=== PATIENT | male | born 1965 | race Two or more races ===

== ENCOUNTER 2023-12-12 03:20 | Inpatient (IN) | payer OTHER ==
[~2023-12-12] VITALS: Ht 177.8 cm; Wt 102.9 kg
--- NOTE | 2023-12-12 03:32 | ED.PDOC ---
History of Present Illness HPI Comments A 58 year old male presents to the ED with a chief complaint of RT sided weakness onset yesterday. Patient was sent from [place] to rule out CVA. 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 Patient is also experiencing back pain that radiates to his head. No other symptoms or modifying factors present at this time. Time Seen by MD: 03:25 Reviewed Notes: Medications, Allergies Allergies: Coded Allergies: Acetaminophen (Verified Allergy, Unknown, 12/12/23) Oxycodone (Verified Allergy, Unknown, 12/12/23) Information Source: Patient Mode of Arrival: Ambulatory Severity: Moderate Timing: Hours Duration: Since onset Prehospital treatment: None Family History Family History: Reviewed,noncontributory to illness, No family hx of Cancer, No family hx of DM, No family hx of Heart rashard, No family hx of HTN, No family hx ofKidney rashard, No family hx of Liver rashard, No family hx of Lung rashard, No family hx of Stroke Social History Smoker: Non-Smoker Alcohol: Denies ETOH Use Drugs: Denies Drug Use Lives In: Home Constitutional: denies: chills, diaphoresis, fatigue, fever, malaise, sweats, weakness, others EENTM: denies: blurred vision, double vision, ear bleeding, ear discharge, ear drainage, ear pain, ear ringing, eye pain, eye redness, hearing loss, mouth pain, mouth swelling, nasal discharge, nose bleeding, nose congestion, nose pain, photophobia, tearing, throat pain, throat swelling, voice changes, others Respiratory: denies: cough, hemoptysis, orthopnea, SOB at rest, shortness of breath, SOB with excertion, stridor, wheezing, others Cardiovascular: denies: chest pain, dizzy spells, diaphoresis, Dyspnea on exertion, edema, irregular heart beat, left arm pain, lightheadedness, palpitations, PND, syncope, others Gastrointestinal: denies: abdomen distended, abdominal pain, blood streaked bowels, constipated, diarrhea, dysphagia, difficulty swallowing, hematemesis, melena, nausea, poor appetite, poor fluid intake, rectal bleeding, rectal pain, vomiting, others Genitourinary: denies: burning, dysuria, flank pain, frequency, hematuria, incontinence, penile discharge, penile sore, pain, testicle pain, testicle swelling, urgency, others Neurological: reports: right sided numbness, right sided weakness, tingling; denies: dizziness, fainting, headache, left sided numbness, left sided weakness, numbness, paresthesia, pre-existing deficit, seizure, speech problems, tremors, weakness, others Musculoskeletal: denies: back pain, gout, joint pain, joint swelling, muscle pain, muscle stiffness, neck pain, others Integumetry: denies: bruises, change in color, change in hair/nails, dryness, laceration, lesions, lumps, rash, wounds, others Allergic/Immunocompromised: denies: Difficulty Healing, Frequent Infections, Hives, Itching, others Hematologic/Lymphatic: denies: anemia, blood clots, easy bleeding, easy bruising, swollen glands, others Endocrine: denies: excessive hunger, excessive sweating, excessive thirst, excessive urination, flushing, intolerance to cold, intolerance to heat, unexplained weight gain, unexplained weight loss, others Psychiatric: denies: anxiety, bipolar disorder, depression, hopeless, panic disorder, schizophrenia, sleepless, suicidal, others All Other Systems: Reviewed and Negative Physical Exam General Appearance: No Apparent Distress, Normal HEENT: Normal ENT Inspection, Pharynx Normal, TMs Normal Neck: Full Range of Motion, Non-Tender, Normal, Normal Inspection Respiratory: Chest Non-Tender, Lungs Clear, No Accessory Muscle Use, No Respiratory Distress, Normal Breath Sounds Cardiovascular: No Edema, No JVD, No Murmur, No Gallop, Normal Peripheral Pulses, Regular Rate/Rhythm Breast Exam: Deferred Gastrointestinal: No Organomegaly, Non Tender, No Pulsatile Mass, Normal Bowel Sounds, Soft Genitalia: Deferred Pelvic: Deferred Rectal: Deferred Extremities: No calf tenderness, Normal capillary refill, Normal inspection, Normal range of motion, Non-tender, No pedal edema Musculoskeletal : Apperance: Normal Neurologic: Alert, data analysis manager II-XII nml as Tested, No Motor Deficits, Normal Affect, Normal Mood, No Sensory Deficits Cerebellar Function: Normal Reflexes: Normal Skin: Dry, Normal Color, Warm Lymphatic: No Adenopathy Was a procedure done? Was a procedure done?: No Differential Dx Considerations may include: CVA, TIA, electrolyte abnormality X-Ray, Labs, Meds, VS Vital Signs Date Time Temp Pulse Resp B/P (MAP) Pulse Ox O2 Delivery O2 Flow Rate FiO2 12/12/23 04:06 Room Air* 0 21 12/12/23 03:55 66 15 154/81 (105) 95 12/12/23 03:36 98.3 75 16 182/101 (128) 100 Lab Test 12/12/23 03:30 Range/Units White Blood Count 6.6 4.4-10.8 10^3/uL Red Blood Count 4.67 4.5-5.90 10^6/uL Hemoglobin 13.4 L 13.5-17.5 g/dL Hematocrit 40.5 L 41.0-53.0 % Mean Corpuscular Volume 86.7 80.0-100.0 fL Mean Corpuscular Hemoglobin 28.7 28.0-32.0 pg Mean Corpuscular Hemoglobin Concent 33.1 32.0-36.0 g/dL Red Cell Distribution Width 15.0 H 11.8-14.3 % Platelet Count 172 140-450 10^3/uL Mean Platelet Volume 9.4 6.9-10.8 fL Neutrophils (%) (Auto) 61.9 37.0-80.0 % Lymphocytes (%) (Auto) 30.3 10.0-50.0 % Monocytes (%) (Auto) 6.3 0.0-12.0 % Eosinophils (%) (Auto) 1.1 0.0-7.0 % Basophils (%) (Auto) 0.4 0.0-2.0 % Neutrophils # (Auto) 4.1 1.6-8.6 10 ^3/uL Lymphocytes # (Auto) 2.0 0.4-5.4 10 ^3/uL Monocytes # (Auto) 0.4 0-1.3 10 ^3/uL Eosinophils # (Auto) 0.1 0-0.8 10 ^3/uL Basophils # (Auto) 0 0-0.2 10 ^3/uL Nucleated Red Blood Cells 0.0 % Sodium Level 136 136-145 mmol/L Potassium Level 3.4 L 3.5-5.1 mmol/L Chloride Level 102 98-107 mmol/L Carbon Dioxide Level 30 20-31 mmol/L Anion Gap 4 L 5-15 Blood Urea Nitrogen 13 9-23 mg/dL Creatinine 1.27 0.700-1.30 mg/dL Glomerular Filtration Rate Calc 65 >90 mL/min BUN/Creatinine Ratio 10.2 10.0-20.0 Serum Glucose 178 H 74-106 mg/dL Calcium Level 9.6 8.7-10.4 mg/dL Time of 1ST Reevaluation: 03:55 Reevaluation 1ST: Unchanged Patient Education/Counseling: Diagnosis, Treatment, Prognosis Family Education/Counseling: No Family Present Departure 1 Departure Time of Disposition: 04:14 (Patient was transferred over from [facility] for concern for TIA. We will admit patient for MRI and Neurology consult) Impression: Primary Impression: Arm paresthesia, right Additional Impression: Right arm weakness Disposition: 09 ADMITTED INPATIENT Admit to: Med Surg Condition: Serious Critical Care Note Critical Care Time?: No Stability Stability form required: No I personally scribed for GEORGE GILL MD ([email or web address]) on 12/12/23 at 03:32. E lectronically submitted by Brandy Varma ([email or web address]). GEORGE GILL MD Dec 12, 2023 03:32
[2023-12-12 03:42] LABS: Basophils # (auto) 0 10 ^3/uL (0-0.2); Basophils % (auto) 0.4 % (0.0-2.0); Eosinophils # (auto) 0.1 10 ^3/uL (0-0.8); Eosinophils % (auto) 1.1 % (0.0-7.0); Hematocrit 40.5 % (41.0-53.0); Hemoglobin 13.4 g/dL (13.5-17.5); Lymphocytes % (auto) 30.3 % (10.0-50.0); Mean Corpuscular Hemoglobin 28.7 pg (28.0-32.0); Mean Corpuscular Hgb Conc. 33.1 g/dL (32.0-36.0); Mean Corpuscular Volume 86.7 fL (80.0-100.0); Monocytes # (auto) 0.4 10 ^3/uL (0-1.3); Monocytes % (auto) 6.3 % (0.0-12.0); Neutrophils # (auto) 4.1 10 ^3/uL (1.6-8.6); Neutrophils % (auto) 61.9 % (37.0-80.0); Platelet Count (auto) 172 10^3/uL (140-450); Red Blood Cells 4.67 10^6/uL (4.5-5.90); White Blood Cell 6.6 10^3/uL (4.4-10.8)
[2023-12-12 03:49] LABS: Chloride 102 mmol/L (98-107); Potassium 3.4 mmol/L (3.5-5.1); Sodium 136 mmol/L (136-145)
[2023-12-12 03:50] LABS: Anion Gap 4 (5-15); Calcium 9.6 mg/dL (8.7-10.4); Carbon Dioxide 30 mmol/L (20-31)
[2023-12-12 03:55] LABS: BUN/Creatinine Ratio 10.2 (10.0-20.0); Blood Urea Nitrogen 13 mg/dL (9-23); Glucose 178 mg/dL (74-106)
[2023-12-12 07:32] VITALS: PULSE 62; RESP 16; O2SAT 100
[2023-12-12] MEDS ORDERED: ACETAMINOPHEN 325 MG TAB PO PRN (11:45)
[2023-12-12] MEDS ORDERED: NITROGLYCERIN 0.4 MG SL TAB SL PRN (11:45)
[2023-12-12] MEDS ORDERED: ONDANSETRON HCL 4 MG/2 ML VIAL IV PRN (11:45)
[2023-12-12] MEDS ORDERED: MORPHINE SULFATE INJ 2 MG/ml SYRG IV PRN (11:45)
[2023-12-12] MEDS ORDERED: TEMAZEPAM 15 MG CAP PO PRN (11:45)
--- NOTE | 2023-12-12 11:54 | DVHHP2 ---
History of Present Illness Reason for Visit: Right sided weakness History of Present Illness Sravan Odonnell is a 58-year-old male with past medical history of hypertension, hyperlipidemia, diabetes, and PTSD who comes in with complaints of right sided weakness. Patient states the right sided weakness began yesterday morning. he states that he almost dropped his coffee cup due to the weakness, and that he is having numbness/tinging to his right foot and right side of his face. He went to [facility] that wanted to transfer him here yesterday for a MRI and full neurological evaluation, but the patient refused. His symptoms were improving and he wanted to drive himself here. Patient states the right sided weakness has improved from yesterday, but is still slightly there, and the numbness/tingling is still present. Cardiovascular: HTN, hyperipidemia Psych: Other (PTSD) Endocrine: Diabetes Past Surgical History: Other (Left wrists) Smoke: No ALCOHOL: none Drugs: None Lives: Roommate Domestic Violence: Neg Review of Systems Constitutional: No: Fever, Chills, Sweats, Weakness, Malaise, Other Eyes: No: Pain, Vision change, Conjunctivae inflammation, Eyelid inflammation, Other, Redness ENT: No: Ear pain, Ear discharge, Nose pain, Nose discharge, Nose congestion, Mouth pain, Mouth swelling, Throat pain, Throat swelling, Other Respiratory: No: Cough, Dry, Shortness of breath, SOB with excertion, Wheezing, Hemoptysis, Pleuritic Pain, Sputum, Wheezing, Other Cardiovascular: No: Chest Pain, Palpitations, Orthopnea, Paroxysmal Noc. Dyspnea, Edema, Lt Headedness, Other Gastrointestinal: No: Nausea, Vomiting, Abdominal Pain, Diarrhea, Constipation, Melena, Hematochezia, Other Genitourinary: No Dysuria, No Frequency, No Incontinence, No Hematuria, No Retention, No Other Musculoskeletal: No: other, neck pain, shoulder pain, arm pain, back pain, hand pain, leg pain, foot pain Skin: No: Rash, Lesions, Jaundice, Bruising, Other Neurological: Weakness (right sided), Numbness (right face, and foot); No: Incoordination, Change in speech, Confusion, Seizures, Other Allergies: Coded Allergies: Acetaminophen (Verified Allergy, Unknown, 12/12/23) Oxycodone (Verified Allergy, Unknown, 12/12/23) Exam Vital Signs Vital Signs Date Time Temp Pulse Resp B/P (MAP) Pulse Ox O2 Delivery O2 Flow Rate FiO2 12/12/23 09:00 61 13 152/94 (113) 96 12/12/23 07:32 97.5 97.5 12/12/23 07:32 Room Air* 0 21 General Appearance: Alert, Oriented X3, Cooperative, mild distress HEENT: Atraumatic, PERRLA, Mucous membr. moist/pink Respiratory: Clear to auscultation, Normal air movement Cardiovascular: Regular rate, Normal S1, Normal S2 Abdominal: Normal bowel sounds, Soft, No tenderness Extremities: No clubbing, No cyanosis, No edema Skin: No rashes, No breakdown, No significant lesion Neuro: Normal gait, Normal speech, Other (strength 4/5 on right hand, numbness/tingling to right side of face) Psych/Mental Status: Mental status NL, Mood NL Labs/Xrays Labs Test 12/12/23 10:50 12/12/23 03:30 Range/Units POC Glucose 105 70-106 mg/dl White Blood Count 6.6 4.4-10.8 10^3/uL Red Blood Count 4.67 4.5-5.90 10^6/uL Hemoglobin 13.4 L 13.5-17.5 g/dL Hematocrit 40.5 L 41.0-53.0 % Mean Corpuscular Volume 86.7 80.0-100.0 fL Mean Corpuscular Hemoglobin 28.7 28.0-32.0 pg Mean Corpuscular Hemoglobin Concent 33.1 32.0-36.0 g/dL Red Cell Distribution Width 15.0 H 11.8-14.3 % Platelet Count 172 140-450 10^3/uL Mean Platelet Volume 9.4 6.9-10.8 fL Neutrophils (%) (Auto) 61.9 37.0-80.0 % Lymphocytes (%) (Auto) 30.3 10.0-50.0 % Monocytes (%) (Auto) 6.3 0.0-12.0 % Eosinophils (%) (Auto) 1.1 0.0-7.0 % Basophils (%) (Auto) 0.4 0.0-2.0 % Neutrophils # (Auto) 4.1 1.6-8.6 10 ^3/uL Lymphocytes # (Auto) 2.0 0.4-5.4 10 ^3/uL Monocytes # (Auto) 0.4 0-1.3 10 ^3/uL Eosinophils # (Auto) 0.1 0-0.8 10 ^3/uL Basophils # (Auto) 0 0-0.2 10 ^3/uL Nucleated Red Blood Cells 0.0 % Sodium Level 136 136-145 mmol/L Potassium Level 3.4 L 3.5-5.1 mmol/L Chloride Level 102 98-107 mmol/L Carbon Dioxide Level 30 20-31 mmol/L Anion Gap 4 L 5-15 Blood Urea Nitrogen 13 9-23 mg/dL Creatinine 1.27 0.700-1.30 mg/dL Glomerular Filtration Rate Calc 65 >90 mL/min BUN/Creatinine Ratio 10.2 10.0-20.0 Serum Glucose 178 H 74-106 mg/dL Calcium Level 9.6 8.7-10.4 mg/dL Assessment/Plan Assessment/Plan Assessment: Acute stroke due to ischemia, Hypertension, Diabetes, PTSD, Plan: Admit to Tele, Neurology consult, MRI brain, ECHO, Carotid duplex, Home medications reconciled, Plan discussed with: Patient My Orders Orders - GLORIA ALMEIDA Procedure Category Date Status Time Admit ADMIT 12/12/23 Transmitted 11:37 Code Status CODE 12/12/23 Transmitted 11:37 2 Gm Sodium Diet DIET 12/12/23 Transmitted Lunch Sodium Chloride Lock PHA 12/12/23 Transmitted (Saline Lock Ns) 14:00 Hydrocodone-Acet PHA 12/12/23 Transmitted 5/325mg Tab ([place] 11:45 Temazepam (Restoril) PHA 12/12/23 Transmitted 11:45 Ondansetron Hcl PHA 12/12/23 Transmitted (Zofran) 11:45 Complete Blood Count LAB 12/13/23 Verified 04:00 Comprehensive LAB 12/13/23 Verified Metabolic Panel 04:00 Echo 2d Mode Cardiac US 12/12/23 Verified DOP 11:37 Carotid Duplx W Color US 12/12/23 Transmitted DOP 11:37 Condition: Serious NEDA 12/12/23 Transmitted 11:37 Acetaminophen Tablet PHA 12/12/23 Transmitted (Tylenol Tablet) 11:45 Nitroglycerin PHA 12/12/23 Transmitted Sublingual (Ntrostat 11:45 Morphine Sulfate PHA 12/12/23 Transmitted Injection 11:45 Stat Ekg For Chest [facility] 12/12/23 Transmitted Pain 11:37 Notify Md Of Changes [facility] 12/12/23 Transmitted From Base 11:37 Tung Nut Grower For [facility] 12/12/23 Transmitted 24 Hours 11:37 Emergency Dysrhythmia [facility] 12/12/23 Transmitted Protocol 11:37 Rhythm Strips Once [facility] 12/12/23 Transmitted Every Shift 11:37 Oxygen By Nasal RT 12/12/23 Transmitted Cannula 11:37 Brain Head Wo Contrast MRI 12/12/23 Transmitted 11:37 * Neurology Consult CONS 12/12/23 Transmitted 11:37 Date of Service: Dec 12, 2023 Billing Provider: GLORIA ALMEIDA Common Visit Codes: 57869-[id number] INP/OBS CARE (MOD) GLORIA ALMEIDA Dec 12, 2023 11:54
[2023-12-12] MEDS ORDERED: DEXTROSE (50%) 50ML SYRG IV PRN (12:00)
--- NOTE | 2023-12-12 12:24 | DVH ---
CAROTID ARTERIAL DOPPLER CLINICAL HISTORY: acute stroke TECHNIQUE: Doppler study of bilateral carotid/vertebral arteries were performed. Comparison: None FINDINGS: The bilateral common carotid, external and internal carotid arteries appear patent without hemodynami catina significant stenosis. There is no significant flow limiting plaque formation identified.The sp ectral wave forms and peak systolic velocities are within normal limits. Antegrade flow is present within the vertebral arteries with appropriate velocities and waveforms. Right ICA/CCA PSV ratio = 1.0. Left ICA/CCA PSV ratio = 0.9 . IMPRESSION: 1. No hemodynamically significant stenosis within the carotid arteries. HS:Y
--- NOTE | 2023-12-12 13:12 | DVHNC2 ---
Intubation Indication: Respiratory Insufficiency Prep: Preoxygenation Pretreated with: Analgesia, Sedation Medicated with: Vecuronium Intubation Approach: Orotracheal Intubation size: cm (8) Date of Service: Dec 12, 2023 Billing Provider: CATHY RIVERA MD Common Visit Codes: 36679-[id number] INP/OBS CARE (HIGH) Secondary Visit Codes: 32531-MBMITOYER STANDBY SERVICE Procedure Codes: [id number] CATHY RIVERA MD Dec 12, 2023 13:12
--- NOTE | 2023-12-12 13:20 | DVH ---
EXAMINATION: MRI BRAIN HEAD WO CONTRAST INDICATION: Acute stroke COMPARISON: None TECHNIQUE: Multiplanar, multisequence magnetic resonance imaging of the brain was performed without the use of i ntravenous contrast. FINDINGS: No evidence of acute infarct. Subcentimeter chronic infarct at the left globus pallidus . No intracr anial hemorrhage. No mass effect. There is periventricular/deep white matter T2/FLAIR hyperintensity is nonspecific, but most commonly associated with chronic microvascular disease. The ventricles and sulci are normal in size for age. Clear basal cisterns. Flow voids in the major intracranial vessels are maintained. No abnormality of the orbits. Paranasal sinuses and mastoid air cells are clear. No abnormality of the visualized osseous structures and extracranial soft tissues. IMPRESSION: 1. No acute infarct, intracranial hemorrhage, mass effect, or hydrocephalus. 2. Chronic left basal ganglia subcentimeter lacunar infarct. HS:Y
[2023-12-12 13:24] VITALS: BP 173/103; PULSE 71; RESP 17; TEMP 97.4; O2SAT 99
[2023-12-12] MEDS: NIFEdipine ER 30 MG TAB PO ONE (13:30)
[2023-12-12] MEDS: SODIUM CHLOR 0.9% PF (SALINE LOCK) 10ML VIAL/SYR IV SCH (14:00)
[2023-12-12] MEDS ORDERED: GLIP5TAB21 PO (14:31)
[2023-12-12] MEDS ORDERED: NIFE90TA75 PO (14:31)
[2023-12-12] MEDS ORDERED: TELM80TA3 PO (14:31)
[2023-12-12] MEDS ORDERED: CITA-77 PO (14:31)
--- NOTE | 2023-12-12 16:56 | DVHSR ---
APPROVED REPORT EXAM: Two-dimensional and M-mode echocardiogram with Doppler and color Doppler. Blood Pressure: 152/94 mmHg INDICATION Acute Stroke RISK FACTORS Height: 70, Weight: 215 DIMENSIONS LVDd4.5 (3.8-5.7cm)LA (2D)3.9 (1.9-4.0cm)Aortic Root3.6 (2.0-3.7cm) LVDs3.0 (2.5-4.0cm)LA (MM) (1.9-4.0cm)Aortic Cusp Exc1.9 (1.5-2.0cm) EF (%) 60.0 (55-70%)Rt. Atrium4.1 (1.9-4.0cm)Asc. Aorta cm IVSd1.1 (0.7-1.1cm)RV (D) (1.8-2.4cm) PWd1.2 (0.7-1.1cm) Mitral Valve MitralMitral Stenosis E wave0.64m/sMV Mean GR.mmHg A wave0.72m/sMV Peak GR.29mmHg E/A ratio0.92D MVAcm2 DECEL [id number] 1/2 Hykg64do IVRTmsDop MVA4.16cm2 Aortic Valve Aortic ValveAortic Stenosis V10.84m/Meseret Mean GR.3mmHg V21.08m/Meseret Peak GR.5mmHg LVOT Diameter1.9 (1.8-2.4cm)Doppler AVA2.20cm2 Pulmonic Valve V20.81m/s Conclusion Normal left ventricular size and dimension. Normal left ventricular systolic function estimated ejec tion fraction 55%. There is a grade 1 diastolic dysfunction. Normal right ventricular size and dimension. Normal right ventricular systolic function. Normal biatrial size and dimension. Normal tricuspid valve structure function. Normal mitral valve structure and function. Normal tricuspid valve structure and function. The pulmonary valve is grossly normal. No pericardial effusion.
[2023-12-12 16:57] VITALS: BP 159/88; PULSE 84; RESP 17; TEMP 98.2; O2SAT 100
[2023-12-12] MEDS: InsuLIN REG 1unit/0.01ml Soln (100units/ml) SC SCH ×2 (17:00→21:42)
[2023-12-12] MEDS: ACCU-CHEK COMFORT CURVE STRIP VI SCH (17:00)
[2023-12-12] MEDS ORDERED: EZET10TA22 PO (17:21)
[2023-12-12] MEDS ORDERED: TRAM50TA2 PO (17:21)
[2023-12-12] MEDS ORDERED: CHOL20007 PO (17:21)
[2023-12-12] MEDS ORDERED: TADA5TAB11 PO (17:21)
[2023-12-12] MEDS ORDERED: MET50T PO (17:21)
[2023-12-12] MEDS: glipiZIDE 5 MG TAB PO SCH (17:48)
[2023-12-12 20:00] VITALS: PULSE 56
[2023-12-12] MEDS: HYDROcodone-ACET 5/325MG TAB PO PRN (21:03)
[2023-12-12] MEDS: cloNIDine HCL 0.1 MG TAB PO ONE (21:32)
[2023-12-12 22:27] VITALS: BP 181/121; PULSE 65; RESP 19; TEMP 97.7; O2SAT 100
--- NOTE | 2023-12-12 23:20 | DVHINCON2 ---
Date of service: Dec 12, [address] Parker Reason for Consultation Acute stroke History of Present Illness Mr. Odonnell is a 58 years old right-handed gentleman with a history of hypertension, diabetes, obesity, sleep apnea on CPAP, he was brought to the hospital on 02/10/2023 with a chief company of right-sided paresthesia About five days ago, the patient developed a pressure, and pain in the left ches t, which spread to both shoulder, chest, and she also developed numbness in the right brachium. On 12/11/2023, he had pressure feeling between left skull base and left hip, better on 12/12/2023. He was had weakness in both upper extremities, he almost dropped his coffee On 12/12/2023, the patient noticed diminished to light touch in the right face, and right arm He has never had similar problem before, he denies history of stroke WBC/HB/PLT/MCV, 12/12/2023: 6.6/13.4/172/86.7 BMP, 12/12/2023: Unremarkable Echocardiogram, 12/12/2023: Normal left ventricular size and dimension. Normal left ventricular systolic function estimated ejection fraction 55%. There is a grade 1 diastolic dysfunction. Normal right ventricular size and dimension. Normal right ventricular systolic function. Normal biatrial size and dimension. Normal tricuspid valve structure function. Normal mitral valve structure and function. Normal tricuspid valve structure and function. The pulmonary valve is grossly normal. No pericardial effusion Carotid Doppler, 12/12/2023: No hemodynamically significant stenosis within the carotid arteries MRI head, 12/12/2023: 1. No acute infarct, intracranial hemorrhage, mass effect, or hydrocephalus. 2. Chronic left basal ganglia subcentimeter lacunar infarct Past Medical History Hypertension, diabetes, obesity, sleep apnea on CPAP (not remember the CPAP dosage) Past Surgical History Left wrist fracture repair Family History: Diabetes mellitus G8 MOTHER G8 FATHER, Hypercholesterolemia G8 MOTHER Hypertension G8 MOTHER Family History Hypertension, diabetes, stroke Social History He was tobacco smoke, but no history of alcohol or recreational substance abuse Allergies: Coded Allergies: Acetaminophen (Verified Allergy, Unknown, 12/12/23) Oxycodone (Verified Allergy, Unknown, 12/12/23) Home Meds Reported Medications Ezetimibe (Zetia) 10 Mg Tab, 1 TAB PO DAILY, #30 TAB 5 Refills 12/12/23 Tadalafil (Cialis) 5 Mg Tab, 4 MG PO, TAB 12/12/23 Cholecalciferol (VITAMIN D3) 2,000 Unit Tab, 5000 UNIT PO DAILY, TAB 12/12/23 Tramadol Hcl (Tramadol Hcl) 50 Mg Tab, 50 MG PO BIDP, TAB 12/12/23 Metoprolol Tartrate (LOPRESSOR TABLET) 50 Mg Tb, 1 TAB PO BID, #60 TAB 5 Refills 12/12/23 Nifedipine (Nifedipine Er) 90 Mg Tab, 90 MG PO DAILY 12/12/23 Citalopram Hydrobromide (Citalopram Hydrobromide) 20 Mg Tab, 1 TAB PO DAILY 12/12/23 Glipizide (Glipizide) 5 Mg Tab, 1 TAB PO BID 12/12/23 Telmisartan-Hydrochlorothiazid (Micardis Hct 80-12.5 mg) 1 Tab Tab, 1 TAB PO DAILY 12/12/23 Current Medications Current Medications Medications (Trade) Dose Ordered Sig/Lorena Route PRN Reason Start Time Stop Time Status Last Admin Sodium Chloride (Saline Lock Ns) 10 ml Q8HR IV 12/12/23 14:00 12/12/23 21:42 Acetaminophen/ Hydrocodone Bitart ([place] 5/325MG Tab) 1 tab Q4HP PRN PO MODERATE PAIN (4-6 PAIN SCALE) 12/12/23 11:45 12/12/23 21:03 Temazepam (Restoril) 15 mg QHSP PRN PO FOR INSOMNIA 12/12/23 11:45 Ondansetron HCl (Zofran) 4 mg Q4HP PRN IV NAUSEA / VOMITING 12/12/23 11:45 Acetaminophen (Tylenol Tablet) 650 mg Q6HP PRN PO PAIN SCALE 1-3 OR TEMP>100.4 12/12/23 11:45 Nitroglycerin (Ntrostat Sublingual) 0.4 mg Q5MINP PRN SL FOR CHEST PAIN 12/12/23 11:45 Morphine Sulfate 2 mg Q30M PRN IV FOR CHEST PAIN 12/12/23 11:45 Diagnostic Test (Pha) (Accu-Chek Comfort Curve T) 1 strip ACHS 12/12/23 17:00 12/12/23 21:42 Insulin Human Regular (InsuLIN R) HS SC 12/12/23 22:00 Insulin Human Regular (InsuLIN R) AC SC 12/12/23 17:00 Dextrose 50 ml UD PRN IV Blood Sugar LESS THAN 60 12/12/23 12:00 Citalopram Hydrobromide (CeleXA TABLET) 20 mg DAILY PO 12/13/23 10:00 Glipizide (Glucotrol Tablet) 5 mg IBID PO 12/12/23 18:00 12/12/23 17:48 Nifedipine (Procardia Xl (Time-Release)) 90 mg DAILY PO 12/13/23 10:00 Patient Own Medication 1 tab DAILY PO 12/13/23 10:00 12/12/23 16:57 DC Hydrochlorothiazide (hydroCHLOROthiazide TABLET) 12.5 mg DAILY PO 12/13/23 10:00 Losartan Potassium (Cozaar Tablet) 100 mg DAILY PO 12/13/23 10:00 Review of Systems As above, the other systems are negative Vital Signs Vital Signs Date Time Temp Pulse Resp B/P (MAP) Pulse Ox O2 Delivery O2 Flow Rate FiO2 12/12/23 22:27 97.7 65 19 181/121 (141) 100 97.7 12/12/23 20:00 Room Air* 0 21 Physical Exam GENERAL EXAM: General: the patient is well developed and nourished. No acute distress. HEENT: Normocephalic, neck is supple, no carotid bruits. No mass. RESPIRATORY: Normal respiratory effort with symmetrical lung expansion. Lungs clear to auscultation. CARDIOVASCULAR: Regular rate and rhythm with no murmurs. S1, S2. ABDOMEN: Soft, nontender, normal bowel sound NEUROLOGICAL: MENTAL STATUS: Awake and alert. Oriented to person, place, time and general circumstances. Able to give personal history. SPEECH, LANGUAGE, HIGHER CORTICAL FUNCTION: no aphasia or dysathria. CRANIAL NERVES: #2: Intact visual sunshine to confrontation. The optic discs were sharp #3,4,6: Pupils are equal, round and reactive. EOMs full and conjugate. No nystagmus. #5: Facial sensation diminished in the right face in all three divisions bilaterally. Mandibular strength intact. #7: Facial muscles symmetrical and strength intact. #8: Hearing grossly normal to voice. #9,10: Uvula and soft palate rise in the midline. Swallow and voice are normal. #11: Trapezius and sternomastoid strength intact bilaterally. #12: Tongue midline. No fasciculations or atrophy. SENSATION: Sensation to touch and pinprick is diminished in the right arm than leg MOTOR: Normal tone in the upper and lower extremity. Normal muscle bulk. No fasciculations. No abnormal movements or posturing. Muscle strength of the major groups in the upper extremities is 5/5. Muscle strength of the major groups in the lower extremities is 5/5. REFLEXES: Deep tendon reflexes normal and symmetrical. No pathological reflexes. CEREBELLAR/COORDINATION: Finger to nose is normal bilaterally. GAIT/STATION: deferred. Labs/Diagnostic Data Labs Test 12/12/23 21:35 12/12/23 03:30 Range/Units POC Glucose 108 H 70-106 mg/dl White Blood Count 6.6 4.4-10.8 10^3/uL Red Blood Count 4.67 4.5-5.90 10^6/uL Hemoglobin 13.4 L 13.5-17.5 g/dL Hematocrit 40.5 L 41.0-53.0 % Mean Corpuscular Volume 86.7 80.0-100.0 fL Mean Corpuscular Hemoglobin 28.7 28.0-32.0 pg Mean Corpuscular Hemoglobin Concent 33.1 32.0-36.0 g/dL Red Cell Distribution Width 15.0 H 11.8-14.3 % Platelet Count 172 140-450 10^3/uL Mean Platelet Volume 9.4 6.9-10.8 fL Neutrophils (%) (Auto) 61.9 37.0-80.0 % Lymphocytes (%) (Auto) 30.3 10.0-50.0 % Monocytes (%) (Auto) 6.3 0.0-12.0 % Eosinophils (%) (Auto) 1.1 0.0-7.0 % Basophils (%) (Auto) 0.4 0.0-2.0 % Neutrophils # (Auto) 4.1 1.6-8.6 10 ^3/uL Lymphocytes # (Auto) 2.0 0.4-5.4 10 ^3/uL Monocytes # (Auto) 0.4 0-1.3 10 ^3/uL Eosinophils # (Auto) 0.1 0-0.8 10 ^3/uL Basophils # (Auto) 0 0-0.2 10 ^3/uL Nucleated Red Blood Cells 0.0 % Sodium Level 136 136-145 mmol/L Potassium Level 3.4 L 3.5-5.1 mmol/L Chloride Level 102 98-107 mmol/L Carbon Dioxide Level 30 20-31 mmol/L Anion Gap 4 L 5-15 Blood Urea Nitrogen 13 9-23 mg/dL Creatinine 1.27 0.700-1.30 mg/dL Glomerular Filtration Rate Calc 65 >90 mL/min BUN/Creatinine Ratio 10.2 10.0-20.0 Serum Glucose 178 H 74-106 mg/dL Calcium Level 9.6 8.7-10.4 mg/dL Assessment Paresthesia involving different parts of the body, bilateral arm weakness, not typical to a neurologic syndrome Chronic left basal ganglia lacunar stroke per MRI scan Sleep apnea Plan/Recommendation Monitoring Supportive treatment\ Telemetry Lipitor profile Aspirin 81 mg daily Lipitor 20 mg daily APAP in the hospital Stroke risk factors discussed More recommendation per clinical course This medical document was created using an electronic medical record system with [employer] dictation system. Although this document has been carefully reviewed, there may still be some phonetic and typographical errors. These areas are purely typographical due to imperfections of the software programs, and do not reflect any compromise in the patient's medical care. Plan discussed with: Patient, Other PADMINI CLARK MD Dec 12, 2023 23:20
[2023-12-13] VITALS (15 sets, daily range): BP systolic 126–181; BP diastolic 21–85; PULSE 53–73; RESP 17–20; TEMP 97–98.6; O2SAT 65–100
[2023-12-13 07:09] LABS: Basophils # (auto) 0 10 ^3/uL (0-0.2); Basophils % (auto) 0.4 % (0.0-2.0); Eosinophils # (auto) 0.1 10 ^3/uL (0-0.8); Eosinophils % (auto) 2.4 % (0.0-7.0); Hematocrit 40.5 % (41.0-53.0); Hemoglobin 13.1 g/dL (13.5-17.5); Lymphocytes # (auto) 2.1 10 ^3/uL (0.4-5.4); Lymphocytes % (auto) 44.6 % (10.0-50.0); Mean Corpuscular Hemoglobin 28.4 pg (28.0-32.0); Mean Corpuscular Hgb Conc. 32.4 g/dL (32.0-36.0); Mean Corpuscular Volume 87.7 fL (80.0-100.0); Monocytes # (auto) 0.5 10 ^3/uL (0-1.3); Monocytes % (auto) 10.7 % (0.0-12.0); Neutrophils # (auto) 1.9 10 ^3/uL (1.6-8.6); Neutrophils % (auto) 41.9 % (37.0-80.0); Nucleated Red Blood Cells % 0.3 %; Platelet Count (auto) 153 10^3/uL (140-450); Red Blood Cells 4.62 10^6/uL (4.5-5.90); Red Cell Distribution Width 14.9 % (11.8-14.3); White Blood Cell 4.6 10^3/uL (4.4-10.8)
[2023-12-13 07:23] LABS: Alanine Aminotransferase 30 U/L (7-40); Alkaline Phosphatase 57 U/L (46-116); Anion Gap 4 (5-15); Aspartate Aminotransferase 17 U/L (13-40); BUN/Creatinine Ratio 12.9 (10.0-20.0); Bilirubin, Total 0.5 mg/dL (0.2-1.0); Blood Urea Nitrogen 16 mg/dL (9-23); Calcium 9.5 mg/dL (8.7-10.4); Carbon Dioxide 30 mmol/L (20-31); Chloride 104 mmol/L (98-107); Cholesterol 228 mg/dL (< 200); Glucose 98 mg/dL (74-106); HDL Cholesterol 56 mg/dL (40-59); LDL Cholesterol 155 mg/dL (< 100); Potassium 4.2 mmol/L (3.5-5.1); Sodium 138 mmol/L (136-145); Total Protein 7.5 g/dL (5.7-8.2); Triglycerides 91 mg/dL (< 150)
[2023-12-13] MEDS: hydroCHLOROthiazide 25 MG TAB PO SCH (09:53)
[2023-12-13] MEDS: NIFEdipine ER 30 MG TAB PO SCH (09:53)
[2023-12-13] MEDS: LOSARTAN POTASSIUM 50 MG TAB PO SCH (09:54)
[2023-12-13] MEDS: CITALOPRAM HYDROBR 20 MG TAB PO SCH (09:54)
[2023-12-13] MEDS: ASPirin 81 mg TAB PO SCH (09:54)
[2023-12-13] MEDS ORDERED: TELMISARTAN HYDROCHLOROTHIAZID PO SCH (10:00)
--- NOTE | 2023-12-13 11:19 | DVHPN2 ---
Subjective The patient seen and examined at bedside. No complaint today. Reviewed: Care Plan, H&P, Labs, Medications, Previous Orders, Radiology Changes from previous H/P or p: No Changes Eyes: No Pain, No Vision change, No Conjunctivae inflammation, No Eyelid inflammation, No Other, No Redness ENT: No Ear pain, No Ear discharge, No Nose pain, No Nose discharge, No Nose congestion, No Mouth pain, No Mouth swelling, No Throat pain, No Throat swelling, No Other Cardiovascular: No Chest Pain, No Palpitations, No Orthopnea, No Paroxysmal Noc. Dyspnea, No Edema, No Lt Headedness, No Other Respiratory: No Cough, No Dry, No Shortness of breath, No SOB with excertion, No Wheezing, No Hemoptysis, No Pleuritic Pain, No Sputum, No Other Gastrointestinal: No Nausea, No Vomiting, No Abdominal Pain, No Diarrhea, No Constipation, No Melena, No Hematochezia, No Other Genitourinary: No Dysuria, No Frequency, No Incontinence, No Hematuria, No Retention, No Other Musculoskeletal: No other, No neck pain, No shoulder pain, No arm pain, No back pain, No hand pain, No leg pain, No foot pain Skin: No Rash, No Lesions, No Jaundice, No Bruising, No Other Objective Vitals Vital Signs Date Time Temp Pulse Resp B/P (MAP) Pulse Ox O2 Delivery O2 Flow Rate FiO2 12/13/23 10:00 98 Room Air* 0 21 12/13/23 09:54 148/85 12/13/23 09:00 97.3 60 18 97.3 Intake/Output Intake and Output 12/13/23 07:00 Intake Total 1400 ml Balance 1400 ml Intake Oral 1400 ml # Voids 4 # Bowel Movements 1 General Appearance: Alert, Oriented X3, Cooperative, No acute distress HEENT: Atraumatic, PERRLA, EOMI, Mucous membr. moist/pink Neck: Supple Lungs: Clear to auscultation, Normal air movement Cardiovascular: Regular rate, Normal S1, Normal S2, No murmurs, Gallops Abdomen: Normal bowel sounds, Soft, No tenderness Neuro: Cranial nerves 3-12 NL Psych/Mental Status: Mental status NL Medications Current Medications Medications Dose Ordered Sig/Lorena Route Start Time Stop Time Status Last Admin Dose Admin Sodium Chloride 10 ml Q8HR IV 12/12/23 14:00 12/13/23 04:53 10 ML Acetaminophen/ Hydrocodone Bitart 1 tab Q4HP PRN PO 12/12/23 11:45 12/12/23 21:03 1 TAB Temazepam 15 mg QHSP PRN PO 12/12/23 11:45 Ondansetron HCl 4 mg Q4HP PRN IV 12/12/23 11:45 Acetaminophen 650 mg Q6HP PRN PO 12/12/23 11:45 Nitroglycerin 0.4 mg Q5MINP PRN SL 12/12/23 11:45 Morphine Sulfate 2 mg Q30M PRN IV 12/12/23 11:45 Diagnostic Test (Pha) 1 strip ACHS 12/12/23 17:00 12/13/23 06:04 1 STRIP Insulin Human Regular HS SC 12/12/23 22:00 Insulin Human Regular AC SC 12/12/23 17:00 Dextrose 50 ml UD PRN IV 12/12/23 12:00 Citalopram Hydrobromide 20 mg DAILY PO 12/13/23 10:00 12/13/23 09:54 20 MG Glipizide 5 mg IBID PO 12/12/23 18:00 12/13/23 06:04 5 MG Nifedipine 90 mg DAILY PO 12/13/23 10:00 12/13/23 09:53 90 MG Hydrochlorothiazide 12.5 mg DAILY PO 12/13/23 10:00 12/13/23 09:53 12.5 MG Losartan Potassium 100 mg DAILY PO 12/13/23 10:00 12/13/23 09:54 100 MG Aspirin 81 mg DAILY PO 12/13/23 10:00 12/13/23 09:54 81 MG Atorvastatin Calcium 20 mg HS PO 12/13/23 22:00 Laboratory Results Laboratory Tests 12/13/23 06:11 Chemistry Test 12/13/23 06:11 Albumin 4.0 g/dL (3.2-4.8) Calcium Level 9.5 mg/dL (8.7-10.4) Total Protein 7.5 g/dL (5.7-8.2) Lipid panel Test 12/13/23 06:11 Cholesterol Level 228 mg/dL (< 200) H HDL Cholesterol 56 mg/dL (40-59) Triglycerides Level 91 mg/dL (< 150) LFT Test 12/13/23 06:11 Alanine Aminotransferase (ALT) 30 U/L (7-40) Alkaline Phosphatase 57 U/L (46-116) Aspartate Amino Transferase (AST) 17 U/L (13-40) Total Bilirubin 0.5 mg/dL (0.2-1.0) Labs and/or images reviewed: Labs reviewed by me Assessment/Plan Assessment/Plan Right side weakness Chronic Left basal ganglia lacuna infarct CVA Hypertension, Diabetes, PTSD, Continuing current management. I reviewed the MRI which showed : No acute infarct, intracranial hemorrhage, mass effect, or hydrocephalus. Chronic left basal ganglia subcentimeter lacunar infarct. Waiting for neurologist to see the patient. We will get Physical therapy. Continuing sliding scale insulin. Continuing hypertensive medication. Plan discussed with: Patient Date of Service: Dec 13, 2023 Billing Provider: MALISSA SALMON MD Common Visit Codes: [id number] INP/OBS CARE(HIGH) MALISSA SALMON MD Dec 13, 2023 11:19
[2023-12-13 12:41] LABS: Hepatitis B Surface Antigen Negative (Negative)
[2023-12-13 13:02] LABS: Hepatitis C Antibody Negative (Negative)
[2023-12-13] MEDS: ATORVASTATIN 20 MG TAB PO SCH ×2 (21:32→22:50)
--- NOTE | 2023-12-13 22:32 | DVHPN2 ---
Progress Note - Dictate Date Seen: Dec 13, 2023 Medical Necessity Reason Pt with a Central, PICC or Fol: No Subjective Mr. Odonnell is a 58 years old right-handed gentleman with a history of hypertension, diabetes, obesity, sleep apnea on CPAP, he was brought to the hospital on 02/10/2023 with a chief company of right-sided paresthesia I have seen and examined the patient, I have discussed with his nurse, he is doing fine, no new complaints, he reports good experience with our APAP Today physical examination is normal WBC/HB/PLT/MCV, 12/12/2023: 6.6/13.4/172/86.7 BMP, 12/12/2023: Unremarkable TG/HDL/LDL/HDL, 12/13/2023: 91/228/155/56 Echocardiogram, 12/12/2023: Normal left ventricular size and dimension. Normal left ventricular systolic function estimated ejection fraction 55%. There is a grade 1 diastolic dysfunction. Normal right ventricular size and dimension. Normal right ventricular systolic function. Normal biatrial size and dimension. Normal tricuspid valve structure function. Normal mitral valve structure and function. Normal tricuspid valve structure and function. The pulmonary valve is grossly normal. No pericardial effusion Carotid Doppler, 12/12/2023: No hemodynamically significant stenosis within the carotid arteries MRI head, 12/12/2023: 1. No acute infarct, intracranial hemorrhage, mass effect, or hydrocephalus. 2. Chronic left basal ganglia subcentimeter lacunar infarct vital signs Vital Sign Date Time Temp Pulse Resp B/P (MAP) Pulse Ox O2 Delivery O2 Flow Rate FiO2 12/13/23 21:00 98.6 67 20 137/85 (102) 98 98.6 12/13/23 20:00 Room Air* 0 21 Total Intake and Output 12/12/23 12/12/23 12/13/23 15:00 23:00 07:00 Intake Total 600 ml 800 ml Balance 600 ml 800 ml medications Current Medications Medications Dose Ordered Sig/Lorena Route Start Time Stop Time Status Last Admin Dose Admin Sodium Chloride 10 ml Q8HR IV 12/12/23 14:00 12/13/23 21:36 10 ML Acetaminophen/ Hydrocodone Bitart 1 tab Q4HP PRN PO 12/12/23 11:45 12/12/23 21:03 1 TAB Temazepam 15 mg QHSP PRN PO 12/12/23 11:45 Ondansetron HCl 4 mg Q4HP PRN IV 12/12/23 11:45 Acetaminophen 650 mg Q6HP PRN PO 12/12/23 11:45 Nitroglycerin 0.4 mg Q5MINP PRN SL 12/12/23 11:45 Morphine Sulfate 2 mg Q30M PRN IV 12/12/23 11:45 Diagnostic Test (Pha) 1 strip ACHS 12/12/23 17:00 12/13/23 21:36 1 STRIP Insulin Human Regular HS SC 12/12/23 22:00 Insulin Human Regular AC SC 12/12/23 17:00 Dextrose 50 ml UD PRN IV 12/12/23 12:00 Citalopram Hydrobromide 20 mg DAILY PO 12/13/23 10:00 12/13/23 09:54 20 MG Glipizide 5 mg IBID PO 12/12/23 18:00 12/13/23 18:00 5 MG Nifedipine 90 mg DAILY PO 12/13/23 10:00 12/13/23 09:53 90 MG Hydrochlorothiazide 12.5 mg DAILY PO 12/13/23 10:00 12/13/23 09:53 12.5 MG Losartan Potassium 100 mg DAILY PO 12/13/23 10:00 12/13/23 09:54 100 MG Aspirin 81 mg DAILY PO 12/13/23 10:00 12/13/23 09:54 81 MG Atorvastatin Calcium 20 mg HS PO 12/13/23 22:00 12/13/23 21:32 20 MG objective General: the patient is well developed and nourished. No acute distress. MENTAL STATUS: Subjective SPEECH, LANGUAGE, HIGHER CORTICAL FUNCTION: no aphasia or dysathria. CRANIAL NERVES: Pupils are equal, round and reactive. EOMs full and conjugate. No nystagmus. Facial sensory examination is normal. Mandibular strength intact. Facial muscles symmetrical and strength intact. SENSATION: Sensation to touch and pinprick is normal MOTOR: Normal tone in the upper and lower extremity. Normal muscle bulk. No fasciculations. No abnormal movements or posturing. Muscle strength of the major groups in the extremities is 5/5. REFLEXES: Deep tendon reflexes normal and symmetrical. No pathological reflexes. CEREBELLAR/COORDINATION: Finger to nose is normal bilaterally. GAIT/STATION: deferred. laboratory and microbiology Laboratory Tests 12/13/23 06:11 Test 12/13/23 06:11 Range/Units Serum Glucose 98 74-106 mg/dL Problem List Paresthesia involving different parts of the body, bilateral arm weakness, not typical to a neurologic syndrome Chronic left basal ganglia lacunar stroke per MRI scan Sleep apnea Assessment/Plan Monitoring Supportive treatment Telemetry Aspirin 81 mg daily Lipitor 40 mg daily APAP in the hospital Stroke risk factors discussed More recommendation per clinical course This medical document was created using an electronic medical record system with [employer] dictation system. Although this document has been carefully reviewed, there may still be some phonetic and typographical errors. These areas are purely typographical due to imperfections of the software programs, and do not reflect any compromise in the patient's medical care. Prognosis poor Plan discussed with: Patient, Other PADMINI CLARK MD Dec 13, 2023 22:32
[2023-12-14] VITALS (10 sets, daily range): BP systolic 134–144; BP diastolic 78–92; PULSE 53–77; RESP 18–20; TEMP 36.7; O2SAT 97–100
--- NOTE | 2023-12-14 12:04 | DVHPN2 ---
Eyes: No Pain, No Vision change, No Conjunctivae inflammation, No Eyelid inflammation, No Other, No Redness ENT: No Ear pain, No Ear discharge, No Nose pain, No Nose discharge, No Nose congestion, No Mouth pain, No Mouth swelling, No Throat pain, No Throat swelling, No Other Cardiovascular: No Chest Pain, No Palpitations, No Orthopnea, No Paroxysmal Noc. Dyspnea, No Edema, No Lt Headedness, No Other Respiratory: No Cough, No Dry, No Shortness of breath, No SOB with excertion, No Wheezing, No Hemoptysis, No Pleuritic Pain, No Sputum, No Other Gastrointestinal: No Nausea, No Vomiting, No Abdominal Pain, No Diarrhea, No Constipation, No Melena, No Hematochezia, No Other Genitourinary: No Dysuria, No Frequency, No Incontinence, No Hematuria, No Retention, No Other Musculoskeletal: No other, No neck pain, No shoulder pain, No arm pain, No back pain, No hand pain, No leg pain, No foot pain Skin: No Rash, No Lesions, No Jaundice, No Bruising, No Other Objective Vitals Vital Signs Date Time Temp Pulse Resp B/P (MAP) Pulse Ox O2 Delivery O2 Flow Rate FiO2 12/14/23 10:36 142/78 12/14/23 09:00 97.7 77 18 98 97.7 12/14/23 02:28 Facial BiPAP Mask 30 12/14/23 00:21 0 Intake/Output Intake and Output 12/14/23 07:00 Intake Total 3040 ml Balance 3040 ml Intake Oral 3040 ml # Voids 7 Medications Current Medications Medications Dose Ordered Sig/Lorena Route Start Time Stop Time Status Last Admin Dose Admin Sodium Chloride 10 ml Q8HR IV 12/12/23 14:00 12/14/23 06:00 10 ML Acetaminophen/ Hydrocodone Bitart 1 tab Q4HP PRN PO 12/12/23 11:45 12/12/23 21:03 1 TAB Temazepam 15 mg QHSP PRN PO 12/12/23 11:45 Ondansetron HCl 4 mg Q4HP PRN IV 12/12/23 11:45 Acetaminophen 650 mg Q6HP PRN PO 12/12/23 11:45 Nitroglycerin 0.4 mg Q5MINP PRN SL 12/12/23 11:45 Morphine Sulfate 2 mg Q30M PRN IV 12/12/23 11:45 Diagnostic Test (Pha) 1 strip ACHS 12/12/23 17:00 12/14/23 05:52 1 STRIP Insulin Human Regular HS SC 12/12/23 22:00 Insulin Human Regular AC SC 12/12/23 17:00 Dextrose 50 ml UD PRN IV 12/12/23 12:00 Citalopram Hydrobromide 20 mg DAILY PO 12/13/23 10:00 12/14/23 10:36 20 MG Glipizide 5 mg IBID PO 12/12/23 18:00 12/14/23 10:45 5 MG Nifedipine 90 mg DAILY PO 12/13/23 10:00 12/14/23 10:34 90 MG Hydrochlorothiazide 12.5 mg DAILY PO 12/13/23 10:00 12/14/23 10:36 12.5 MG Losartan Potassium 100 mg DAILY PO 12/13/23 10:00 12/14/23 10:35 100 MG Aspirin 81 mg DAILY PO 12/13/23 10:00 12/14/23 10:36 81 MG Atorvastatin Calcium 40 mg HS PO 12/13/23 22:30 12/13/23 22:50 40 MG Laboratory Results Laboratory Tests 12/13/23 06:11 MALISSA SALMON MD Dec 14, 2023 12:04
[2023-12-14] MEDS ORDERED: LOSA-534 PO (12:27)
[2023-12-14] MEDS ORDERED: ASPI-325 PO (12:27)
--- NOTE | 2023-12-18 21:35 | DVHDS2 ---
Discharge Summary Date of Admission Dec 12, 2023 at 11:37 Date of Discharge: Dec 14, 2023 Admitting Diagnosis Acute stroke due to ischemia, Hypertension, Diabetes, PTSD, Labs/Diagnostic Data: Laboratory Results Test 12/14/23 10:43 12/13/23 06:11 12/12/23 03:30 POC Glucose 119 mg/dl (70-106) White Blood Count 4.6 10^3/uL (4.4-10.8) Red Blood Count 4.62 10^6/uL (4.5-5.90) Hemoglobin 13.1 g/dL (13.5-17.5) Hematocrit 40.5 % (41.0-53.0) Mean Corpuscular Volume 87.7 fL (80.0-100.0) Mean Corpuscular Hemoglobin 28.4 pg (28.0-32.0) Mean Corpuscular Hemoglobin Concent 32.4 g/dL (32.0-36.0) Red Cell Distribution Width 14.9 % (11.8-14.3) Platelet Count 153 10^3/uL (140-450) Mean Platelet Volume 9.8 fL (6.9-10.8) Neutrophils (%) (Auto) 41.9 % (37.0-80.0) Lymphocytes (%) (Auto) 44.6 % (10.0-50.0) Monocytes (%) (Auto) 10.7 % (0.0-12.0) Eosinophils (%) (Auto) 2.4 % (0.0-7.0) Basophils (%) (Auto) 0.4 % (0.0-2.0) Neutrophils # (Auto) 1.9 10 ^3/uL (1.6-8.6) Lymphocytes # (Auto) 2.1 10 ^3/uL (0.4-5.4) Monocytes # (Auto) 0.5 10 ^3/uL (0-1.3) Eosinophils # (Auto) 0.1 10 ^3/uL (0-0.8) Basophils # (Auto) 0 10 ^3/uL (0-0.2) Nucleated Red Blood Cells 0.3 % Sodium Level 138 mmol/L (136-145) Potassium Level 4.2 mmol/L (3.5-5.1) Chloride Level 104 mmol/L (98-107) Carbon Dioxide Level 30 mmol/L (20-31) Anion Gap 4 (5-15) Blood Urea Nitrogen 16 mg/dL (9-23) Creatinine 1.24 mg/dL (0.700-1.30) Glomerular Filtration Rate Calc 67 mL/min (>90) BUN/Creatinine Ratio 12.9 (10.0-20.0) Serum Glucose 98 mg/dL (74-106) Calcium Level 9.5 mg/dL (8.7-10.4) Total Bilirubin 0.5 mg/dL (0.2-1.0) Aspartate Amino Transferase (AST) 17 U/L (13-40) Alanine Aminotransferase (ALT) 30 U/L (7-40) Alkaline Phosphatase 57 U/L (46-116) Total Protein 7.5 g/dL (5.7-8.2) Albumin 4.0 g/dL (3.2-4.8) Triglycerides Level 91 mg/dL (< 150) Cholesterol Level 228 mg/dL (< 200) LDL Cholesterol 155 mg/dL (< 100) HDL Cholesterol 56 mg/dL (40-59) Hepatitis B Surface Antigen Negative (Negative) Hepatitis C Antibody Negative (Negative) Other Laboratory Tests 12/13/23 06:11 Brief Hx & Hospital Course: This is a 58 years old male with past medical history hypertension, hyperlipidemia, diabetes, PTSD come to emergency department because right-sided weakness. The patient had right-sided weakness beginning yesterday morning. He dropped his coffee murmur due to the weakness. He also had numbness and tingling of his right foot and right side of his face. He went to [facility] in the medical step-down wanted to transfer him to the hospital however he refused. Today he afraid of his right-sided weakness that not go away so he decided to come to the hospital instead. In the emergency department. Echo was done showed: Normal left ventricular size and dimension. Normal left ventricular systolic function estimated ejection fraction 55%. There is a grade 1 diastolic dysfunction. Normal right ventricular size and dimension. Normal right ventricular systolic function. Normal biatrial size and dimension. Normal tricuspid valve structure function. Normal mitral valve structure and function. Normal tricuspid valve structure and function. The pulmonary valve is grossly normal. No pericardial effusion. Ultrasound carotid and MRI was done. Ultrasound bilateral carotid showed no stenosis. MRI showed chronic left basal ganglia infarct but no acute CVA. Neurology see the patient and his impression is the weakness might not come from the acute CVA. He recommend aspirin in Lipitor. Today the patient weakness resolved. I am going to discharge him home. Advised him to follow up with primary care physician 1-2 weeks. Activity as tolerated. Diet per home diet. Recommend low-salt low-cholesterol diet and carb controlled diabetic diet. Physical exam: HEENT: Normocephalic atraumatic pupils equal react to light and accommodation. Extraocular muscles intact, conjunctiva pink, oropharynx moist, no thrush, no exudate. Lymphatic: No lymphadenopathy Cardiovascular exam: S1, S2 was heard. No murmurs, rubs, gallops Lung: Clear on auscultation bilaterally, no wheeze, rale, rhonchi. GI: Abdominal soft, nondistended, nontenderness, positive bowel sounds. Extremity: No crepitus, cyanosis, edema. Pedal pulses present bilateral. Full range of motion. Skin: Normal turgor, no rash. Psych: Alert, oriented x3. Neurology: No focal deficits, cranial nerve II to XII grossly intact. Condition at Discharge: Stable Final Diagnosis/Problems List Right side weakness Chronic Left basal ganglia lacuna infarct CVA Hypertension, Diabetes, PTSD Discharge Disposition: Home Discharge Instruct/Medications Diet: Cardiac 2g Na,low cholest Activity: No Restrictions, As Tolerated Follow Up/Referral: pcp 1-2weeks Medications: asa 81mg daily losartan 50mg daily Lipitor 40mg daily Discharge Statement: "Patient was advised to return to the ER or call 911 if any headaches, dizziness, shortness of breath, chest pain, abdominal pain, bleeding, fevers, or worsening of medical condition. Patient was counseled about treatment plan, medications, possible side effects, patientverbalized understanding. All questions were answered to the best of my ability. This discharge took greater then 30 minutes in planning, reviewing documentation, counseling the patient, and discussing with other team members." ASSESSMENT ASSESSMENT Assessment cva Date of Service: Dec 14, 2023 Billing Provider: MALISSA SALMON MD Common Visit Codes: 55821-EGW/OBS DISCH DAY >30min MALISSA SALOMN MD Dec 18, 2023 21:35
[2023-12-19] MEDS ORDERED: ATOR-507 PO (06:52)
== END 2023-12-14 14:35 | disposition home or self-care (01) | DRG 552 ==
LOC: ER 03:20 → TELE 11:37 → TELE-WESTW 13:17
PROVIDERS: ADMIT Nurse Practitioner Family; ATTEND Internal Medicine
PROC: 0BH17EZ Insertion of Endotracheal Airway into Trachea, Via Natural or Artificial Opening (ICD-10-PCS; 2023-12-12)
PROC: 5A09357 Assistance with Respiratory Ventilation, Less than 24 Consecutive Hours, Continuous Positive Airway Pressure (ICD-10-PCS; principal; 2023-12-13)
PROC: 5A09357 Assistance with Respiratory Ventilation, Less than 24 Consecutive Hours, Continuous Positive Airway Pressure (ICD-10-PCS; 2023-12-14)
DX: M54.9 Dorsalgia, unspecified (principal); I69.351 Hemiplegia and hemiparesis following cerebral infarction affecting right dominant side; F43.10 Post-traumatic stress disorder, unspecified; G47.30 Sleep apnea, unspecified; I10 Essential (primary) hypertension; E78.5 Hyperlipidemia, unspecified; E66.9 Obesity, unspecified; E11.9 Type 2 diabetes mellitus without complications; Z88.6 Allergy status to analgesic agent; Z88.5 Allergy status to narcotic agent; Z83.3 Family history of diabetes mellitus; Z82.49 Family history of ischemic heart disease and other diseases of the circulatory system; Z82.3 Family history of stroke; Z79.82 Long term (current) use of aspirin; Z79.899 Other long term (current) drug therapy; Z68.32 Body mass index [BMI] 32.0-32.9, adult
CPT/HCPCS: 36415; 70551; 80048; 80053; 80061; 82962; 85025; 86803; 87340; 93306; 93886; 94660; G0378

== ENCOUNTER → 2024-11-26 | Outpatient (CLI) | payer OTHER ==
[~2024-11-26] MED LIST: ASPI-325 PO; ATOR-507 PO; CHOL20007 PO; CITA-77 PO; EZET10TA22 PO; GLIP5TAB21 PO; LOSA-534 PO; MET50T PO; NIFE90TA75 PO; TADA5TAB11 PO; TELM80TA3 PO; TRAM50TA2 PO
[2024-11-26 14:29] LABS: Hematocrit 40.5 % (41.0-53.0); Hemoglobin 13.1 g/dL (13.5-17.5); Mean Corpuscular Hemoglobin 27.5 pg (28.0-32.0); Mean Corpuscular Volume 85.0 fL (80.0-100.0); Nucleated Red Blood Cells % 0.1 %
[2024-11-26 15:49] LABS: Alanine Aminotransferase 55 U/L (7-40); Albumin 4.6 g/dL (3.2-4.8); Alkaline Phosphatase 65 U/L (46-116); Anion Gap 8 (5-15); BUN/Creatinine Ratio 13.3 (10.0-20.0); Bilirubin, Total 0.6 mg/dL (0.2-1.0); Blood Urea Nitrogen 19 mg/dL (9-23); Calcium 9.6 mg/dL (8.7-10.4); Carbon Dioxide 30 mmol/L (20-31); Chloride 100 mmol/L (98-107); Cholesterol 173 mg/dL (< 200); Glucose 95 mg/dL (74-106); HDL Cholesterol 49 mg/dL (40-59); Potassium 4.0 mmol/L (3.5-5.1); Sodium 138 mmol/L (136-145); Total Protein 8.8 g/dL (5.7-8.2); Triglycerides 74 mg/dL (< 150)
[2024-11-26 15:52] LABS: Urine Protein, UAD Negative (Negative)
[2024-11-26 16:07] LABS: Microalb/Creat Ratio, Urine < 3.0
== END | disposition home or self-care (01) ==
LOC: LAB 14:09
PROVIDERS: ATTEND Internal Medicine
DX: E11.65 Type 2 diabetes mellitus with hyperglycemia (principal); Z00.01 Encounter for general adult medical examination with abnormal findings
CPT/HCPCS: 36415; 80053; 80061; 81001; 82043; 82570; 83036; 84439; 84443; 85025

== ENCOUNTER 2024-12-04 14:18 | Outpatient (CLI) | payer OTHER | END 2024-12-04 17:00 | disposition home or self-care (01) | LOC: LAB 14:18 | PROVIDERS: ATTEND Internal Medicine | DX: E11.69 Type 2 diabetes mellitus with other specified complication (principal); D64.9 Anemia, unspecified; N52.9 Male erectile dysfunction, unspecified; Z12.5 Encounter for screening for malignant neoplasm of prostate; Z12.11 Encounter for screening for malignant neoplasm of colon; Z11.59 Encounter for screening for other viral diseases; Z79.899 Other long term (current) drug therapy | CPT/HCPCS: 36415; 82274; 84153; 84403; 86803 ==